=== PATIENT | male | born 1970 | race Caucasian/White ===

== ENCOUNTER → 2016-11-23 | Outpatient (CLI) | payer BC ==
[~2016-11-23] MED LIST: OXYCODONE HCL5 M2 ORAL; OXYCONTIN10 MG ORAL; STRIBILD TABLE1 EACH PO; TEMAZEPAM30 MG ORAL; XANAX1 MG ORAL
--- NOTE | 2016-11-23 13:50 | Diagnostic Imaging Report ---
Indication: COUGH Technique: Two views of the chest Comparison: 03/05/2015 Findings: The lungs and pleural spaces are clear. Heart size is normal. There is surgical fusion hardware in the lower cervical spine. Findings are unchanged Impression: No acute process
== END | disposition home or self-care (01) ==
LOC: RAD 12:42
DX: Z01.818 Encounter for other preprocedural examination (principal); R05 Cough
CPT/HCPCS: 71020